=== PATIENT | male | born 1950 | race Caucasian/White ===

== ENCOUNTER 2018-01-06 11:47 | Observation (INO) | payer OTHER ==
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
[2018-01-06] MEDS ORDERED: IOPAMIDOL (ISOVUE-300) 100 ML BTL ONE (11:59)
[2018-01-06] MEDS ORDERED: KETOROLAC 15 MG/1 ML SDV IVP ONE (12:02)
[2018-01-06 12:17] LABS: PLATELET COUNT 141 10^3/uL (150-400)
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
[2018-01-06] MEDS ORDERED: ONDANSETRON 4 MG/2 ML VIAL IVP PRN ×2 (16:35→17:29)
[2018-01-06] MEDS ORDERED: HYDROmorphONE/DILAUDID 2 MG TAB PO PRN (16:41)
[2018-01-06] MEDS ORDERED: ACETAMINOPHEN 325 MG TAB PO SCH (16:45)
[2018-01-06] MEDS ORDERED: LR 1,000 ML IV SCH (17:00)
[2018-01-06] MEDS ORDERED: ONDANSETRON DISINTEGRATING 4 MG TAB PO PRN (17:29)
[2018-01-06] MEDS ORDERED: ACETAMINOPHEN 325 MG TAB PO PRN (17:29)
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
[2018-01-06] MEDS: KETOROLAC 30 MG/1 ML SDV IVP SCH (18:29)
[2018-01-06] MEDS: ACETAMINOPHEN 500 MG TAB PO SCH (18:30)
[2018-01-06] MEDS: BACITRACIN ZINC 14.2 GM OINTTUBE TP SCH (21:28)
[2018-01-07] MEDS: KETOROLAC 30 MG/1 ML SDV IVP SCH ×2 (00:48→07:28)
[2018-01-07] MEDS: ACETAMINOPHEN 500 MG TAB PO SCH ×2 (00:48→09:40)
[2018-01-07 07:57] VITALS: BP 142/87
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
[2018-01-07] MEDS ORDERED: PNEUMOC 13-VAL CONJ-DIP CRM/PF 0.5 ML SYR IM ONE (08:50)
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
[2018-01-07] MEDS: BACITRACIN ZINC 14.2 GM OINTTUBE TP SCH (09:41)
== END 2018-01-07 12:08 | disposition home or self-care (01) ==
LOC: EDUNIT# → F3N 15:11
PROVIDERS: ADMIT Surgery; ATTEND Surgery
PROC: 2W35X3Z Immobilization of Back using Brace (ICD-10-PCS; principal; 2018-01-06)
DX: S32.038A Other fracture of third lumbar vertebra, initial encounter for closed fracture (principal); S32.048A Other fracture of fourth lumbar vertebra, initial encounter for closed fracture; S22.31XA Fracture of one rib, right side, initial encounter for closed fracture; V18.0XXA Pedal cycle driver injured in noncollision transport accident in nontraffic accident, initial encounter; Y92.828 Other wilderness area as the place of occurrence of the external cause; Y93.55 Activity, bike riding
CPT/HCPCS: 70450; 71260; 72072; 72125; 72129; 72132; 72146; 73130; 74177; 90670; 96374; 97165; 99285; G0009; G0378; G8987; G8988; G8989; J1885; J2405; Q9967; 82435-PO; 82565-PO; 82947-PO; 84132-PO; 84295-PO; 84520-PO; 85014-PO

== ENCOUNTER → 2018-02-14 | Outpatient (CLI) | payer OTHER | LOC: FIMAGING 11:11 | PROVIDERS: ATTEND Neurological Surgery | DX: S22.030D Wedge compression fracture of third thoracic vertebra, subsequent encounter for fracture with routine healing (principal); S22.040D Wedge compression fracture of fourth thoracic vertebra, subsequent encounter for fracture with routine healing ==